=== PATIENT | male | born 1955 | race African-American/Black ===

== ENCOUNTER 2016-06-22 16:18 | Inpatient (IN) | payer MEDICAID ==
[~2016-06-22] VITALS: Ht 193 cm; Wt 102.1 kg
[2016-06-22 16:42] VITALS: BP 172/96
[2016-06-22 16:51] LABS: BASOPHILS % (AUTO) 0.8 % (0.0-2.0); LYMPHOCYTES % (AUTO) 23.4 % (20.0-45.0); MEAN CORPUSCULAR HEMOGLOBIN 28.2 PG (27.0-31.0); MEAN CORPUSCULAR HGB CONC 32.1 G/DL (32.0-36.0); MEAN CORPUSCULAR VOLUME 88 FL (80-99); MEAN PLATELET VOLUME 6.6 FL (6.5-10.1); MONOCYTES % (AUTO) 7.8 % (1.0-10.0); PLATELET COUNT 224 K/UL (150-450); RED BLOOD COUNT 4.64 M/UL (4.70-6.10); RED CELL DISTRIBUTION WIDTH 13.3 % (11.6-14.8); WHITE BLOOD COUNT 10.6 K/UL (4.8-10.8)
[2016-06-22 17:07] LABS: TROPONIN I < 0.30 ng/mL (<=0.30)
[2016-06-22 17:48] LABS: ALANINE AMINOTRANSFERASE 11 U/L (3-41); ALBUMIN/GLOBULIN RATIO 1.2 (1.0-2.7); ANION GAP 14 (5-15); ASPARTATE AMINO TRANSFERASE 14 U/L (5-40); CALCIUM 8.9 mg/dL (8.6-10.2); CARBON DIOXIDE 26 mEQ/L (20-30); CHLORIDE 101 mEQ/L (98-107); CKMB 1.7 ng/mL (< 6.7); GLOMERULAR FILTRATION RATE > 60 mL/min (>60); HEMOLYSIS 24; POTASSIUM 4.1 mEQ/L (3.4-4.9); SODIUM 141 mEQ/L (135-145); TOTAL PROTEIN 6.8 g/dL (6.6-8.7)
[2016-06-22 18:48] VITALS: BP 148/87
--- NOTE | 2016-06-22 18:50 | Emergency Room Report ---
History of Present Illness General Chief Complaint: Chest Pain Source: Patient, EMS Present Illness HPI Patient present with complaints of left upper chest pain Ongoing since last night Patient reports increased pain with movement and touch Denies any shortness of breath denies any back or flank pain Denies any previous cardiac workup Pain is 6/10 He does describe sharp pain also heaviness denies any low back pain or tearing sensation Patient also does report a fall last week Hitting the left upper chest area Allergies: Coded Allergies: No Known Allergies (Unverified , 06/22/16) Patient History Past Medical History: see triage record Pertinent Family History: none Reviewed Nursing Documentation: PMH: Agreed, PSxH: Agreed Nursing Documentation-PMH Past Medical History: No Stated History Review of Systems All Other Systems: negative except mentioned in HPI Physical Exam Vital Signs Date Time Temp Pulse Resp B/P Pulse Ox O2 Delivery O2 Flow Rate FiO2 06/22/16 16:11 98.2 80 16 178/110 98 Room Air Sp02 EP Interpretation: reviewed, normal General Appearance: well appearing, no apparent distress Head: normocephalic, atraumatic Eyes: bilateral eye EOMI, bilateral eye PERRL ENT: hearing grossly normal, normal pharynx, TMs + canals normal, uvula midline Neck: full range of motion, supple, no meningismus, no bony tend Respiratory: lungs clear, normal breath sounds, no rhonchi, no respiratory distress, no retraction, no accessory muscle use Cardiovascular #1: normal peripheral pulses, regular rate, rhythm, no edema, no gallop, no JVD, no murmur Gastrointestinal: normal bowel sounds, non tender, soft, no mass, no organomegaly, non-distended, no guarding, no hernia, no pulsatile mass, no rebound Genitourinary: no CVA tenderness Musculoskeletal: normal inspection Neurologic: oriented x3, responsive, wrapper hand III-XII nml as tested, motor strength/ tone normal, sensory intact Psychiatric: mood/affect normal Skin: normal color, no rash, warm/dry, palpation normal, other - Mild bruising left upper chest just lateral to the area lower area Lymphatic: normal inspection, no adenopathy Medical Decision Making Diagnostic Impression: Primary Impression: ACS (acute coronary syndrome) ER Course Patient is a fairly complex patient with multiple differential to consideration including but not limited to cardiac cardiopulmonary and vascular emergencies Chest x-ray does not show any obvious acute pathology There is some component of reproducible discomfort And mechanism for contusion however the patient's EKG is somewhat abnormal and given the patient's hypertensive presentation patient require further inpatient care Labs Test 06/22/16 16:40 White Blood Count 10.6 K/UL (4.8-10.8) Red Blood Count 4.64 M/UL (4.70-6.10) Hemoglobin 13.1 G/DL (14.2-18.0) Hematocrit 40.7 % (42.0-52.0) Mean Corpuscular Volume 88 FL (80-99) Mean Corpuscular Hemoglobin 28.2 PG (27.0-31.0) Mean Corpuscular Hemoglobin Concent 32.1 G/DL (32.0-36.0) Red Cell Distribution Width 13.3 % (11.6-14.8) Platelet Count 224 K/UL (150-450) Mean Platelet Volume 6.6 FL (6.5-10.1) Neutrophils (%) (Auto) 66.0 % (45.0-75.0) Lymphocytes (%) (Auto) 23.4 % (20.0-45.0) Monocytes (%) (Auto) 7.8 % (1.0-10.0) Eosinophils (%) (Auto) 2.0 % (0.0-3.0) Basophils (%) (Auto) 0.8 % (0.0-2.0) Sodium Level 141 mEQ/L (135-145) Potassium Level 4.1 mEQ/L (3.4-4.9) Chloride Level 101 mEQ/L (98-107) Carbon Dioxide Level 26 mEQ/L (20-30) Anion Gap 14 (5-15) Blood Urea Nitrogen 13 mg/dL (7-23) Creatinine 1.0 mg/dL (0.7-1.2) Estimat Glomerular Filtration Rate > 60 mL/min (>60) Glucose Level 93 mg/dL (74-106) Calcium Level 8.9 mg/dL (8.6-10.2) Total Bilirubin 0.3 mg/dL (0.0-1.2) Aspartate Amino Transf (AST/SGOT) 14 U/L (5-40) Alanine Aminotransferase (ALT/SGPT) 11 U/L (3-41) Alkaline Phosphatase 94 U/L (40-129) Total Creatine Kinase 159 U/L (38-174) Creatine Kinase MB 1.7 ng/mL (< 6.7) Creatine Kinase MB Relative Index 1.0 Troponin I < 0.30 ng/mL (<=0.30) Pro-B-Type Natriuretic Peptide 49 pg/mL (0-125) Total Protein 6.8 g/dL (6.6-8.7) Albumin 3.8 g/dL (3.5-5.2) Globulin 3.0 g/dL Albumin/Globulin Ratio 1.2 (1.0-2.7) EKG Diagnostic Results Rate: normal Rhythm: NSR ST Segments: other - Nonspecific ST and T-wave changes, there is a nonspecific diffuse elevation in leads 23 aVF V4 V5 and V6, with likely early repoll Rhythm Strip Diag. Results EP Interpretation: yes Rate: 88 Rhythm: NSR, no PVC's, no ectopy Chest X-Ray Diagnostic Results EP Interpretation: Yes Findings: no consolidation, no effusion, no pneumothorax Number of Views: 1 Last Vital Signs Date Time Temp Pulse Resp B/P Pulse Ox O2 Delivery O2 Flow Rate FiO2 06/22/16 16:42 80 16 Room Air 06/22/16 16:42 98.3 172/96 98 Status: improved Disposition: ADMITTED INPATIENT Condition: Serious Referrals: LETICIA TOMLINSON,REFERRING (PCP) EMANUEL JEAN D.O. Jun 22, 2016 18:50
[2016-06-22] MEDS ORDERED: NKM (18:56)
[2016-06-22] MEDS ORDERED: Nitroglycerin 2% oint pkt TOPIC ONE (19:00)
[2016-06-22] MEDS ORDERED: Aspirin Baby 81mg ORAL ONE (19:00)
[2016-06-22] MEDS ORDERED: Morphine Sulfate 4mg/ml Inj IVP ONE (19:00)
[2016-06-22] MEDS ORDERED: Nitroglycerin Subl 0.4mg tab (Bottle Of 25) SL PRN (19:15)
[2016-06-22] MEDS ORDERED: DuoNeb 0.5-3(2.5)mg/3ml neb HHN PRN (19:15)
[2016-06-22] MEDS ORDERED: Ketorolac 30mg Inj IV PRN (19:15)
[2016-06-22] MEDS ORDERED: Diltiazem 25mg/5ml IV PRN (19:15)
[2016-06-22] MEDS ORDERED: Miralax 17gm pkt ORAL PRN (19:15)
[2016-06-22] MEDS ORDERED: Morphine Sulfate 2mg/ml Inj IVP PRN (19:15)
[2016-06-22] MEDS ORDERED: Enalaprilat 2.5mg/2ml Inj IV PRN (19:15)
[2016-06-22 20:00] VITALS: BP 152/86
[2016-06-22] MEDS: Heparin 5000 units/ml inj SUBQ SCH (21:01)
[2016-06-22] MEDS ORDERED: Influenza Virus Vaccine 0.5ml IM ONE (21:30)
[2016-06-22 22:05] VITALS: BP 130/83
[2016-06-23 00:07] VITALS: BP 147/76
[2016-06-23 04:00] VITALS: BP 98/58
[2016-06-23 07:28] LABS: BASOPHILS % (AUTO) 0.8 % (0.0-2.0); EOSINOPHILS % (AUTO) 2.2 % (0.0-3.0); LYMPHOCYTES % (AUTO) 35.1 % (20.0-45.0); MEAN CORPUSCULAR HEMOGLOBIN 28.1 PG (27.0-31.0); MEAN CORPUSCULAR HGB CONC 31.5 G/DL (32.0-36.0); MEAN CORPUSCULAR VOLUME 89 FL (80-99); MEAN PLATELET VOLUME 6.6 FL (6.5-10.1); MONOCYTES % (AUTO) 7.7 % (1.0-10.0); NEUTROPHILS % (AUTO) 54.1 % (45.0-75.0); PLATELET COUNT 216 K/UL (150-450); RED BLOOD COUNT 4.62 M/UL (4.70-6.10); RED CELL DISTRIBUTION WIDTH 13.5 % (11.6-14.8); WHITE BLOOD COUNT 11.2 K/UL (4.8-10.8)
[2016-06-23 07:32] LABS: PROTHROMBIN TIME 10.6 SEC (9.30-11.50)
[2016-06-23 07:43] LABS: TROPONIN I < 0.30 ng/mL (<=0.30)
[2016-06-23 07:48] LABS: THYROID STIMULATING HORMONE 1.61 uIU/mL (0.300-4.500)
[2016-06-23 07:49] LABS: CHOLESTEROL/HDL RATIO 4.2 (3.3-4.4); CRP QUANT 0.4 mg/dL (< 0.5)
[2016-06-23 08:04] VITALS: BP 119/78
[2016-06-23] MEDS: Aspirin Baby 81mg ORAL SCH (08:10)
[2016-06-23] MEDS: Heparin 5000 units/ml inj SUBQ SCH ×2 (08:12→20:58)
[2016-06-23] MEDS ORDERED: Influenza Virus Vaccine 0.5ml IM ONE (09:00)
--- NOTE | 2016-06-23 10:19 | Diagnostic Imaging Report ---
Indication: Chest Pain Comparison: None A single view chest radiograph was obtained. Findings: No definite infiltrate or pulmonary vascular congestion identified. The heart is within normal limits in terms of size. The aorta is mildly enlarged consistent with atherosclerotic vascular disease. The bones are osteopenic. Impression: No acute disease
[2016-06-23 11:59] VITALS: BP 129/83
--- NOTE | 2016-06-23 12:53 | History and Physical ---
History of Present Illness General Date patient seen: Jun 23, 2016 Reason for Hospitalization: Chest Pain Present Illness HPI 61 year old male with hx of HTN, presented to ER with complaints of left upper chest pain He does describe sharp pain also heaviness. He is admitted to telemetry to rule out ACS. Allergies: Coded Allergies: No Known Allergies (Unverified , 06/22/16) Medication History Scheduled No Known Medications* (NKM - No Known Medications*), 0 ., (Reported) Patient History Healthcare decision maker Resuscitation status Full Code Advanced Directive on File Past Medical/Surgical History Past Medical/Surgical History: (1) HTN (hypertension) Review of Systems All Other Systems: negative except mentioned in HPI Physical Exam General Appearance: WD/WN, no apparent distress Lines, tubes and drains: peripheral, trach HEENT: normocephalic, atraumatic Neck: non-tender, normal alignment, supple Respiratory/Chest: chest wall non-tender, lungs clear Breasts: no masses Cardiovascular/Chest: normal peripheral pulses, normal rate Abdomen: normal bowel sounds, non tender Genitourinary/Rectal: normal genital exam, normal rectal exam Extremities: normal range of motion, non-tender Skin Exam: normal pigmentation 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 Last 24 Hour Vital Signs Date Time Temp Pulse Resp B/P Pulse Ox O2 Delivery O2 Flow Rate FiO2 06/23/16 11:59 97.9 52 18 129/83 98 Room Air 06/23/16 08:04 97.3 47 18 119/78 97 Room Air 06/23/16 08:00 52 06/23/16 04:00 97.9 57 19 98/58 96 Room Air 06/23/16 04:00 48 06/23/16 00:07 97.3 50 20 147/76 98 Trach Collar 06/23/16 00:00 47 06/22/16 22:05 97.5 56 18 130/83 96 Room Air 06/22/16 20:00 96.8 54 21 152/86 96 Room Air 06/22/16 19:29 98.2 55 17 152/91 99 Room Air 06/22/16 19:25 98.2 06/22/16 18:57 152/91 06/22/16 18:48 98.2 55 17 148/87 99 Room Air 06/22/16 16:42 80 16 Room Air 06/22/16 16:42 98.3 57 12 172/96 98 Room Air 06/22/16 16:11 98.2 80 16 178/110 98 Room Air Intake and Output 06/22/16 06/23/16 19:00 07:00 Intake Total 200 ml Balance 200 ml Intake Oral 200 ml # Voids 1 Laboratory Tests Test 06/22/16 16:40 06/23/16 05:20 White Blood Count 10.6 K/UL (4.8-10.8) 11.2 K/UL (4.8-10.8) H Red Blood Count 4.64 M/UL (4.70-6.10) L 4.62 M/UL (4.70-6.10) L Hemoglobin 13.1 G/DL (14.2-18.0) L 13.0 G/DL (14.2-18.0) L Hematocrit 40.7 % (42.0-52.0) L 41.2 % (42.0-52.0) L Mean Corpuscular Volume 88 FL (80-99) 89 FL (80-99) Mean Corpuscular Hemoglobin 28.2 PG (27.0-31.0) 28.1 PG (27.0-31.0) Mean Corpuscular Hemoglobin Concent 32.1 G/DL (32.0-36.0) 31.5 G/DL (32.0-36.0) L Red Cell Distribution Width 13.3 % (11.6-14.8) 13.5 % (11.6-14.8) Platelet Count 224 K/UL (150-450) 216 K/UL (150-450) Mean Platelet Volume 6.6 FL (6.5-10.1) 6.6 FL (6.5-10.1) Neutrophils (%) (Auto) 66.0 % (45.0-75.0) 54.1 % (45.0-75.0) Lymphocytes (%) (Auto) 23.4 % (20.0-45.0) 35.1 % (20.0-45.0) Monocytes (%) (Auto) 7.8 % (1.0-10.0) 7.7 % (1.0-10.0) Eosinophils (%) (Auto) 2.0 % (0.0-3.0) 2.2 % (0.0-3.0) Basophils (%) (Auto) 0.8 % (0.0-2.0) 0.8 % (0.0-2.0) Sodium Level 141 mEQ/L (135-145) Potassium Level 4.1 mEQ/L (3.4-4.9) Chloride Level 101 mEQ/L (98-107) Carbon Dioxide Level 26 mEQ/L (20-30) Anion Gap 14 (5-15) Blood Urea Nitrogen 13 mg/dL (7-23) Creatinine 1.0 mg/dL (0.7-1.2) Estimat Glomerular Filtration Rate > 60 mL/min (>60) Glucose Level 93 mg/dL (74-106) Calcium Level 8.9 mg/dL (8.6-10.2) Total Bilirubin 0.3 mg/dL (0.0-1.2) Aspartate Amino Transf (AST/SGOT) 14 U/L (5-40) Alanine Aminotransferase (ALT/SGPT) 11 U/L (3-41) Alkaline Phosphatase 94 U/L (40-129) Total Creatine Kinase 159 U/L (38-174) Creatine Kinase MB 1.7 ng/mL (< 6.7) Creatine Kinase MB Relative Index 1.0 Troponin I < 0.30 ng/mL (<=0.30) < 0.30 ng/mL (<=0.30) Pro-B-Type Natriuretic Peptide 49 pg/mL (0-125) Total Protein 6.8 g/dL (6.6-8.7) Albumin 3.8 g/dL (3.5-5.2) Globulin 3.0 g/dL Albumin/Globulin Ratio 1.2 (1.0-2.7) Prothrombin Time 10.6 SEC (9.30-11.50) Prothromb Time International Ratio 1.0 (0.9-1.1) Activated Partial Thromboplast Time 25 SEC (23-33) C-Reactive Protein, Quantitative 0.4 mg/dL (< 0.5) Triglycerides Level 151 mg/dL (< 150) H Cholesterol Level 199 mg/dL (< 200) LDL Cholesterol 122 mg/dL (60-99) H HDL Cholesterol 47 mg/dL (> 60) Cholesterol/HDL Ratio 4.2 (3.3-4.4) Thyroid Stimulating Hormone (TSH) 1.610 uIU/mL (0.300-4.500) Height (Feet): 6 Height (Inches): 4.00 Weight (Pounds): 225 Medications Current Medications Medications (Trade) Dose Ordered Sig/Juanita Route PRN Reason Start Time Stop Time Status Last Admin Dose Admin Acetaminophen (Tylenol) 650 mg Q4H PRN ORAL FEVER 06/22/16 19:15 07/22/16 19:14 Albuterol/ Ipratropium (DuoNeb 0.5-3(2.5)mg/3ml) 3 ml EVERY 4 HOURS PRN HHN Shortness of Breath 06/22/16 19:15 06/27/16 19:14 Aspirin (ASA) 162 mg DAILY ORAL 06/23/16 09:00 07/23/16 08:59 06/23/16 08:10 Diltiazem HCl (Cardizem) 10 mg EVERY HOUR PRN IV heart rate more than 120, 06/22/16 19:15 07/22/16 19:14 Enalaprilat (Vasotec) 2.5 mg EVERY 6 HOURS PRN IV sbp more than 160 06/22/16 19:15 07/22/16 19:14 Heparin Sodium (Porcine) (Heparin 5000 units/ml) 5,000 units EVERY 12 HOURS SUBQ 06/22/16 21:00 07/22/16 20:59 06/23/16 08:12 Ketorolac Tromethamine (Toradol 30mg) 30 mg Q6HR PRN IV moderate pain ( 4-6) 06/22/16 19:15 06/27/16 19:14 Morphine Sulfate (Morphine Sulfate) 2 mg EVERY 4 HOURS PRN IVP severe Pain (Pain Scale 7-10) 06/22/16 19:15 06/29/16 19:14 Nitroglycerin (Ntg) 0.4 mg Q5M PRN SL Prn Chest Pain 06/22/16 19:15 07/22/16 19:14 Ondansetron HCl (Zofran) 4 mg Q6H PRN IVP Nausea & Vomiting 06/22/16 19:15 07/22/16 19:14 Pantoprazole (Protonix) 40 mg DAILY ORAL 06/23/16 09:00 07/23/16 08:59 06/23/16 08:10 Polyethylene Glycol (Miralax) 17 gm DAILYPRN PRN ORAL Constipation 06/22/16 19:15 07/22/16 19:14 Temazepam (Restoril) 15 mg HSPRN PRN ORAL Insomnia 06/22/16 19:15 06/29/16 19:14 Assessment/Plan Problem List: (1) ACS (acute coronary syndrome) ICD Codes: I24.9 - Acute ischemic heart disease, unspecified SNOMED: 422641559 (2) HTN (hypertension) ICD Codes: I10 - Essential (primary) hypertension SNOMED: 30175219 Assessment/Plan serial ekg, troponin echo cardiology evaluation ANA JUAN Jun 23, 2016 12:53
[2016-06-23 16:00] VITALS: BP 142/73
[2016-06-23 20:00] VITALS: BP 134/80
--- NOTE | 2016-06-23 21:11 | Cardiology Progress Note ---
Assessment/Plan Assessment/Plan 2 different types of cp one of [facility] may be ms tobaco use diorder 'hyperlipidemian \ htn hs sinus bradycardia trop and ekg neg i am unable to reproduce cp on palp will have exercise / adenosine Cardiolite stress test [id number] Objective Last 24 Hour Vital Signs Date Time Temp Pulse Resp B/P Pulse Ox O2 Delivery O2 Flow Rate FiO2 06/23/16 20:00 56 06/23/16 20:00 97.8 52 20 134/80 98 Room Air 06/23/16 17:59 97.9 06/23/16 16:00 97.9 50 21 142/73 98 Room Air 06/23/16 12:00 52 06/23/16 11:59 97.9 52 18 129/83 98 Room Air 06/23/16 08:04 97.3 47 18 119/78 97 Room Air 06/23/16 08:00 52 06/23/16 04:00 97.9 57 19 98/58 96 Room Air 06/23/16 04:00 48 06/23/16 00:07 97.3 50 20 147/76 98 Trach Collar 06/23/16 00:00 47 06/22/16 22:05 97.5 56 18 130/83 96 Room Air Intake and Output 06/22/16 06/23/16 19:00 07:00 Intake Total 200 ml Balance 200 ml Intake Oral 200 ml # Voids 1 Laboratory Tests Test 06/23/16 05:20 White Blood Count 11.2 K/UL (4.8-10.8) H Red Blood Count 4.62 M/UL (4.70-6.10) L Hemoglobin 13.0 G/DL (14.2-18.0) L Hematocrit 41.2 % (42.0-52.0) L Mean Corpuscular Volume 89 FL (80-99) Mean Corpuscular Hemoglobin 28.1 PG (27.0-31.0) Mean Corpuscular Hemoglobin Concent 31.5 G/DL (32.0-36.0) L Red Cell Distribution Width 13.5 % (11.6-14.8) Platelet Count 216 K/UL (150-450) Mean Platelet Volume 6.6 FL (6.5-10.1) Neutrophils (%) (Auto) 54.1 % (45.0-75.0) Lymphocytes (%) (Auto) 35.1 % (20.0-45.0) Monocytes (%) (Auto) 7.7 % (1.0-10.0) Eosinophils (%) (Auto) 2.2 % (0.0-3.0) Basophils (%) (Auto) 0.8 % (0.0-2.0) Prothrombin Time 10.6 SEC (9.30-11.50) Prothromb Time International Ratio 1.0 (0.9-1.1) Activated Partial Thromboplast Time 25 SEC (23-33) Troponin I < 0.30 ng/mL (<=0.30) C-Reactive Protein, Quantitative 0.4 mg/dL (< 0.5) Triglycerides Level 151 mg/dL (< 150) H Cholesterol Level 199 mg/dL (< 200) LDL Cholesterol 122 mg/dL (60-99) H HDL Cholesterol 47 mg/dL (> 60) Cholesterol/HDL Ratio 4.2 (3.3-4.4) Thyroid Stimulating Hormone (TSH) 1.610 uIU/mL (0.300-4.500) GRABIEL MINER Jun 23, 2016 21:11
[2016-06-24] VITALS (7 sets, daily range): BP systolic 127–164; BP diastolic 79–98
--- NOTE | 2016-06-24 01:48 | Consultation ---
DATE OF CONSULTATION: 06/23/2016 CARDIOLOGY CONSULTATION: REFERRING PHYSICIAN: Aliyah Arce M.D. REASON FOR REFERRAL: Chest pain. HISTORY OF PRESENT ILLNESS: This is a middle-aged gentleman, who apparently two weeks ago while fixing something fell and hit the left axillary area and was excruciating pain resolved noted come back on Tuesday and since Tuesday he has had pain in that area and more proximal in the chest area and does not feel like pain or pressure but he feels that he has been punched in that area and also has a different kind of sensation in the left side of the chest. He seems to think that the pain gets worse when he takes a deep breath or cough or twists and turns sometimes but the pain has been present it appears possibly all the time although does go away with some kind of pain medications that he does not like take it. He has no PND or orthopnea although he uses five or six pillows for comfort. There is no palpitation and no dizziness or lightheadedness. PAST MEDICAL HISTORY: Positive for high blood pressure and high cholesterol. No heart attack. No cancer. No stroke. No hepatitis or tuberculosis. No asthma or emphysema. No ulcers or kidney problems. No liver problems, thyroid problems, or anemia. He does have some arthritis. No prostate problems, HIV, or any heart problems before. ALLERGIES: He is not allergic to any medications. SOCIAL HISTORY: He smoked one pack a day. Socially, he drinks alcoholic beverages. No drug use. He used to use marijuana, but he stopped that. 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 REVIEW OF SYSTEMS: Gastrointestinal: Negative. : Negative. Pulmonary: Negative. Constitutional: Negative although he feels cold at times. Neurologic: He has some numbness and tingling sensation in his hand when he holds his breath. PHYSICAL EXAMINATION: GENERAL: Shows to be tall gentleman, no apparent distress. VITAL SIGNS: Blood pressure is 119/78 to 142/73 with heart rate 47 to 52 range. NECK: Supple. No jugular venous distention. LUNGS: Clear to auscultation and percussion. CARDIAC: Regular rate and rhythm. No heaves, thrills, or gallops noted. Chest wall, does not appear to be tender to palpation although he indicates he just took some pain medications. ABDOMEN: Soft and nontender. Positive bowel sounds. EXTREMITIES: There is no clubbing, cyanosis, nor is there any edema. NEUROLOGIC: He is awake, alert, responsive, in no apparent distress. LABORATORY VALUES: Troponins are negative. Sodium 141, potassium 4.1, chloride 101, bicarbonate 26, BUN 13, creatinine 1.2, and glucose of 93. Liver function tests are normal. ProBNP is only 49. Total cholesterol 199 with ALT of 122 and HDL 47. TSH of 1.2. Coags, INR is 1.0 and PTT 25. His electrocardiogram shows sinus bradycardia 62 range. Paramedics indicate EKG will also is normal. No ST-T wave abnormality. No significant degree. ASSESSMENT AND PLAN: 1. Atypical chest pain. He seems to have at least two different types of pain. One, musculoskeletally. Other one he had a hard time describing. The musculoskeletal pain does get worse with the position and coughing and deep breathing and the other pain is difficult to describe or explain any relieving exacerbating factors being identified. The patient is a smoker. 2. Hyperlipidemia. 3. Hypertension. I would recommend a perfusion imaging prior to to discharge home mainly because it is too different types of pain. I will follow the patient along with you. Mark Chaidez M.D. DR: Jonatan JOB#: [id number] CC:
[2016-06-24 07:51] LABS: TROPONIN I < 0.30 ng/mL (<=0.30)
[2016-06-24] MEDS: Aspirin Baby 81mg ORAL SCH (08:43)
[2016-06-24] MEDS: Heparin 5000 units/ml inj SUBQ SCH (08:44)
--- NOTE | 2016-06-24 12:54 | Pulmonology Progress Note ---
Assessment/Plan Problems: (1) ACS (acute coronary syndrome) (2) HTN (hypertension) Assessment/Plan stress test dc if negative f/u by cardio Subjective ROS Limited/Unobtainable: No Interval Events: stress test today Constitutional: Reports: no symptoms HEENT: Repors: no symptoms Allergies: Coded Allergies: No Known Allergies (Unverified , 06/22/16) Objective Last 24 Hour Vital Signs Date Time Temp Pulse Resp B/P Pulse Ox O2 Delivery O2 Flow Rate FiO2 06/24/16 11:51 97.9 50 18 127/92 99 Room Air 06/24/16 08:20 97.7 47 18 130/79 98 Room Air 06/24/16 08:00 52 06/24/16 06:30 98.5 48 18 155/90 98 Room Air 06/24/16 05:30 165/70 06/24/16 04:04 98.5 48 21 164/90 99 Room Air 06/24/16 04:00 42 06/24/16 01:00 98.8 50 20 158/80 97 Room Air 06/24/16 00:13 98.8 50 20 163/98 97 Room Air 06/24/16 00:00 53 06/23/16 20:00 56 06/23/16 20:00 97.8 52 20 134/80 98 Room Air 06/23/16 17:59 97.9 06/23/16 16:00 97.9 50 21 142/73 98 Room Air Intake and Output 06/23/16 06/24/16 19:00 07:00 Intake Total 360 ml 260 ml Output Total 480 ml 1800 ml Balance -120 ml -1540 ml Intake Oral 360 ml 260 ml Output Urine Total 480 ml 1800 ml # Voids 1 General Appearance: WD/WN HEENT: normocephalic, atraumatic Respiratory/Chest: chest wall non-tender, lungs clear Cardiovascular: normal peripheral pulses, normal rate Abdomen: normal bowel sounds, no organomegaly Laboratory Tests 06/24/16 06:40: Troponin I < 0.30 Current Medications Medications (Trade) Dose Ordered Sig/Juanita Route PRN Reason Start Time Stop Time Status Last Admin Dose Admin Acetaminophen (Tylenol) 650 mg Q4H PRN ORAL FEVER 06/22/16 19:15 07/22/16 19:14 Albuterol/ Ipratropium (DuoNeb 0.5-3(2.5)mg/3ml) 3 ml EVERY 4 HOURS PRN HHN Shortness of Breath 06/22/16 19:15 06/27/16 19:14 Aspirin (ASA) 162 mg DAILY ORAL 06/23/16 09:00 07/23/16 08:59 06/24/16 08:43 Diltiazem HCl (Cardizem) 10 mg EVERY HOUR PRN IV heart rate more than 120, 06/22/16 19:15 07/22/16 19:14 Enalaprilat (Vasotec) 2.5 mg EVERY 6 HOURS PRN IV sbp more than 160 06/22/16 19:15 07/22/16 19:14 06/24/16 05:30 Heparin Sodium (Porcine) (Heparin 5000 units/ml) 5,000 units EVERY 12 HOURS SUBQ 06/22/16 21:00 07/22/16 20:59 06/24/16 08:44 Ketorolac Tromethamine (Toradol 30mg) 30 mg Q6HR PRN IV moderate pain ( 4-6) 06/22/16 19:15 06/27/16 19:14 06/23/16 17:29 Morphine Sulfate (Morphine Sulfate) 2 mg EVERY 4 HOURS PRN IVP severe Pain (Pain Scale 7-10) 06/22/16 19:15 06/29/16 19:14 Nitroglycerin (Ntg) 0.4 mg Q5M PRN SL Prn Chest Pain 06/22/16 19:15 07/22/16 19:14 Ondansetron HCl (Zofran) 4 mg Q6H PRN IVP Nausea & Vomiting 06/22/16 19:15 07/22/16 19:14 Pantoprazole (Protonix) 40 mg DAILY ORAL 06/23/16 09:00 07/23/16 08:59 06/24/16 08:43 Polyethylene Glycol (Miralax) 17 gm DAILYPRN PRN ORAL Constipation 06/22/16 19:15 07/22/16 19:14 Temazepam (Restoril) 15 mg HSPRN PRN ORAL Insomnia 06/22/16 19:15 06/29/16 19:14 ANA JUAN Jun 24, 2016 12:54
--- NOTE | 2016-06-24 15:15 | Cardiology Report ---
APPROVED REPORT EKG Measurement Heart [id number] Normal sinus rhythm with sinus arrhythmia Possible Left atrial enlargement Left ventricular hypertrophy ST elevation, consider early repolarization, pericarditis, or injury Abnormal ECG
--- NOTE | 2016-06-24 15:25 | Cardiology Report ---
APPROVED REPORT EXAM: Two-dimensional and M-mode echocardiogram with Doppler and color Doppler. INDICATION Left ventricular function M-Mode DIMENSIONS IVSd1.2 (0.7-1.1cm)Left Atrium (MM)2.8 (1.6-4.0cm) LVDd4.2 (3.5-5.6cm)Aortic Root3.0 (2.0-3.7cm) PWd1.3 (0.7-1.1cm)Aortic Cusp Exc.1.7 (1.5-2.0cm) LVDs2.9 (2.5-4.0cm) PWs1.6 cm Normal left ventricular chamber size, systolic function and wall motion. Left ventricular ejection fraction estimated to be 55-60 %. Moderate left ventricular hypertrophy. No evidence of pericardial fat or effusion. Moderate right atrial enlargement by 2D. Mild left atrial enlargement by 2D. Mild focal aortic valve sclerosis with adequate cusp excursion Thickened mitral valve leaflets with normal excursion. Mild mitral annulus and aortic root calcification. Pulmonic valve not well visualized. Normal tricuspid valve structure. IVC dilated at 2.9cm with no physiologic collapse. RA pressure of 20mmHg. A color flow and spectral Doppler study was performed and revealed: No aortic regurgitation. No mitral regurgitation. Mitral inflow velocities indicates possible pseudo normalization pattern implying significant left ventricular diastolic dysfunction. Moderate tricuspid regurgitation. Tricuspid systolic velocities suggests peak right ventricular systolic pressure of 46 mmHg Consistent with moderate pulmonary hypertension.
--- NOTE | 2016-06-24 16:39 | Diagnostic Imaging Report ---
Indications: Chest pain Technique: Single day single isotope protocol utilized. Initially, resting images obtained using IV administration 11.9 millicuries 99M technetium Myoview. Subsequently, patient underwent treadmill stress testing. See cardiology report for details. During treadmill testing, IV administration 31 mCi 99 M technetium Myoview. SPECT and planar images obtained. SPECT images gated to 8 phases of the cardiac cycle were also obtained, and reformatted into cine images for evaluation of ejection fraction. Comparison: None Findings: Per cardiology report, patient experienced no symptoms. Per cardiology report, resting EKG demonstrates sinus bradycardia with early repolarization abnormality. Presence or absence of ST changes is not recorded on the cardiology report. Patient achieved the exercise heart rate 153 beats for minute, in excess of the target heart rate 136 beats for minute. Imaging demonstrates a small post stress perfusion defect in the anteroseptal wall and apex which is actually larger on the resting images. Normal left ventricular chamber size. Calculated post stress ejection fraction 55% Impression: Nonischemic clinical response to pharmacologic stress, per cardiology report Nonischemic electrocardiographic response to pharmacologic stress, per cardiology report Small fixed perfusion defect in the anteroseptal wall near the apex. No imaging findings to suggest ischemia, at level of stress achieved Calculated post stress ejection fraction 55%
--- NOTE | 2016-06-25 14:48 | Discharge Summary ---
Discharge Summary Hospital Course Date of Admission Jun 22, 2016 at 18:30 Date of Discharge Jun 24, 2016 at 20:16 Admitting Diagnosis Acute Coronary Syndrome HPI Ramy Baez is a 61 year old male who was admitted on Jun 22, 2016 at 18: 30 for Acute Coronary Syndrome Hospital Course [id number] Discharge Discharge Disposition Patient was discharged to Home (01) Discharge Diagnoses: Yumiko Avila NP Jun 25, 2016 14:48
--- NOTE | 2016-06-26 01:58 | Discharge Summary 2 SIG ---
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 BRIEF HOSPITAL COURSE: The patient is a 61-year-old male, with history of hypertension, who presented to ED complaining of left upper chest pain, described as heaviness. He was admitted for cardiac evaluation and possible ACS. Dr. Chaidez was consulted. EKG was normal. No ST-T wave abnormality of significant degree. Cardiac troponins were negative. He underwent a nuclear treadmill stress test. Results were nonischemic. The patient was eventually discharged home. FINAL DIAGNOSES: 1. Musculoskeletal chest pain. 2. Tobacco use disorder. 3. Hyperlipidemia. 4. Hypertension. 5. Sinus bradycardia. Aliyah Arce M.D. I have been assigned to dictate discharge summary on this account and I was not involved in the patient's management. Yumiko Avila N.P. DR: MICHAEL JOB#: [id number] CC:
== END 2016-06-24 20:16 | disposition home or self-care (01) | DRG 203 ==
LOC: EDBD 16:18 → EMR 16:53 → EDBEDREQ 17:27 → 2E 18:30 → EDBEDREQ 18:47
DX: R07.89 Other chest pain (principal); I10 Essential (primary) hypertension; F17.200 Nicotine dependence, unspecified, uncomplicated; E78.5 Hyperlipidemia, unspecified; R00.1 Bradycardia, unspecified
CPT/HCPCS: 36415; 71010; 78452; 80053; 80061; 82550; 82553; 83880; 84443; 84484; 85025; 85610; 85730; 86140; 93005; 93017; 93306; Q2036

== ENCOUNTER 2017-07-13 10:36 | Emergency (ER) | payer MEDICAID, OTHER ==
[~2017-07-13] VITALS: Ht 193 cm; Wt 99.8 kg
[~2017-07-13 10:36] MED LIST: NKM
[2017-07-13] MEDS ORDERED: Ketorolac 60mg Inj IM ONE (11:30)
[2017-07-13] MEDS ORDERED: Cyclobenzaprine 10mg Tab ORAL ONE (11:30)
[2017-07-13 11:44] LABS: APPEARANCE,URINE CLEAR; BILIRUBIN, URINE NEGATIVE (NEGATIVE); GLUCOSE, URINE (UA) NEGATIVE (NEGATIVE); KETONES,URINE NEGATIVE (NEGATIVE); LEUKOCYTE ESTERASE ,URINE 1+ (NEGATIVE); NITRITE,URINE NEGATIVE (NEGATIVE); PH,URINE 5 (4.5-8.0); PROTEIN,URINE 2+ (NEGATIVE); UROBILINOGEN,URINE 1 MG/DL (0.0-1.0)
[2017-07-13 11:56] LABS: COLOR,URINE YELLOW
[2017-07-13 12:37] LABS: BASOPHILS % (AUTO) 1.2 % (0.0-2.0); EOSINOPHILS % (AUTO) 2.5 % (0.0-3.0); HEMATOCRIT 44.1 % (42.0-52.0); HEMOGLOBIN 14.2 G/DL (14.2-18.0); LYMPHOCYTES % (AUTO) 25.1 % (20.0-45.0); MEAN CORPUSCULAR VOLUME 89 FL (80-99); MONOCYTES % (AUTO) 9.7 % (1.0-10.0); NEUTROPHILS % (AUTO) 61.5 % (45.0-75.0); PLATELET COUNT 249 K/UL (150-450); RED BLOOD COUNT 4.97 M/UL (4.70-6.10); RED CELL DISTRIBUTION WIDTH 13.4 % (11.6-14.8); WHITE BLOOD COUNT 10.7 K/UL (4.8-10.8)
[2017-07-13 12:53] LABS: ANION GAP 4 mmol/L (5-15); BLOOD UREA NITROGEN 14 mg/dL (7-18); CALCIUM 9.1 MG/DL (8.5-10.1); CARBON DIOXIDE 29 MMOL/L (21-32); CHLORIDE 102 MMOL/L (98-107); SODIUM 134 MMOL/L (136-145)
[2017-07-13 13:01] LABS: ALANINE AMINOTRANSFERASE 19 U/L (12-78); ALBUMIN 3.9 G/DL (3.4-5.0); ALKALINE PHOSPHATASE 106 U/L (46-116); ASPARTATE AMINO TRANSFERASE 9 U/L (15-37); BILIRUBIN,TOTAL 0.3 MG/DL (0.2-1.0); CREATINE KINASE 164 U/L (26-308)
--- NOTE | 2017-07-13 13:52 | Emergency Room Report ---
History of Present Illness General Chief Complaint: Pain Source: Patient Present Illness HPI This patient states he has had body aches all over his body for probably the past year. He describes his pain as achy and all over. 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 He is not on any of his medications that he had been on previously by his primary care physician. He does have a history of hypertension. Have an appointment coming up in the next month at a new clinic. He states that his insurance changed the clinic he can go to. He denies chest pain or shortness of breath. He denies abdominal pain. He denies recent illness. Denies fever chills. He denies headache or neck pain. He has no other complaints. Allergies: Coded Allergies: No Known Allergies (Unverified , 06/22/16) Patient History Past Medical History: see triage record, HTN Social History: Reports: smoking, Denies: alcohol use, drug use Reviewed Nursing Documentation: PMH: Agreed, PSxH: Agreed Nursing Documentation-PMH Past Medical History: No History, Except For Hx Cardiac Problems: Yes Hx Hypertension: Yes Hx Cancer: No Hx Gastrointestinal Problems: No Hx Neurological Problems: No Review of Systems All Other Systems: negative except mentioned in HPI Physical Exam Vital Signs Date Time Temp Pulse Resp B/P (MAP) Pulse Ox O2 Delivery O2 Flow Rate FiO2 07/13/17 10:40 98.3 66 18 158/96 96 Room Air 98.2 Sp02 EP Interpretation: reviewed, normal General Appearance: no apparent distress, alert, GCS 15, non-toxic Head: normocephalic, atraumatic Eyes: bilateral eye normal inspection, bilateral eye PERRL ENT: hearing grossly normal, normal pharynx, no angioedema, normal voice Neck: full range of motion, supple/symm/no masses Respiratory: chest non-tender, lungs clear, normal breath sounds, speaking full sentences Cardiovascular #1: regular rate, rhythm, no edema Gastrointestinal: normal bowel sounds, non tender, soft, non-distended, no guarding, no rebound Rectal: deferred Musculoskeletal: back normal, gait/station normal, normal range of motion, non- tender Neurologic: alert, oriented x3, responsive, motor strength/tone normal, sensory intact, speech normal Psychiatric: judgement/insight normal, memory normal, mood/affect normal, no suicidal/homicidal ideation Skin: normal color, no rash, warm/dry, well hydrated Medical Decision Making Diagnostic Impression: Primary Impression: Neuropathy Additional Impressions: Body aches Arthritis ER Course Patient complains of body aches. I suspect he has arthritis in may have some neuropathy. I did obtain basic labs to include CBC, CMP and CK. These were all unremarkable. There is no evidence of rhabdomyolysis or myositis. Laboratory workup is benign. I'm unsure of the etiology of his symptoms. However, I did educate them that he could see his primary care physician and undergo more thorough testing to include vitamin level testing. However, this should not be obtained in the emergency department. Overall, the patient's evaluation is benign. I instructed the patient to follow-up closely with his primary care physician. I did not identify an emergency medical condition. The patient was given return precautions and follow-up instructions. Laboratory Tests Test 07/13/17 11:34 07/13/17 12:20 Urine Color Yellow Urine Appearance Clear Urine pH 5 (4.5-8.0) Urine Specific [place] 1.025 (1.005-1.035) Urine Protein 2+ (NEGATIVE) H Urine Glucose (UA) Negative (NEGATIVE) Urine Ketones Negative (NEGATIVE) Urine Occult Blood 4+ (NEGATIVE) H Urine Nitrite Negative (NEGATIVE) Urine Bilirubin Negative (NEGATIVE) Urine Urobilinogen 1 MG/DL (0.0-1.0) H Urine Leukocyte Esterase 1+ (NEGATIVE) H Urine RBC 5-10 /HPF (0 - 0) H Urine WBC 2-4 /HPF (0 - 0) Urine Squamous Epithelial Cells Occasional /LPF Urine Bacteria Occasional /HPF (NONE) White Blood Count 10.7 K/UL (4.8-10.8) Red Blood Count 4.97 M/UL (4.70-6.10) Hemoglobin 14.2 G/DL (14.2-18.0) Hematocrit 44.1 % (42.0-52.0) Mean Corpuscular Volume 89 FL (80-99) Mean Corpuscular Hemoglobin 28.6 PG (27.0-31.0) Mean Corpuscular Hemoglobin Concent 32.2 G/DL (32.0-36.0) Red Cell Distribution Width 13.4 % (11.6-14.8) Platelet Count 249 K/UL (150-450) Mean Platelet Volume 6.7 FL (6.5-10.1) Neutrophils (%) (Auto) 61.5 % (45.0-75.0) Lymphocytes (%) (Auto) 25.1 % (20.0-45.0) Monocytes (%) (Auto) 9.7 % (1.0-10.0) Eosinophils (%) (Auto) 2.5 % (0.0-3.0) Basophils (%) (Auto) 1.2 % (0.0-2.0) Sodium Level 134 MMOL/L (136-145) L Potassium Level 4.0 MMOL/L (3.5-5.1) Chloride Level 102 MMOL/L (98-107) Carbon Dioxide Level 29 MMOL/L (21-32) Anion Gap 4 mmol/L (5-15) L Blood Urea Nitrogen 14 mg/dL (7-18) Creatinine 1.0 MG/DL (0.55-1.30) Estimate Glomerular Filtration Rate > 60 mL/min (>60) Glucose Level 124 MG/DL (74-106) H Calcium Level 9.1 MG/DL (8.5-10.1) Total Bilirubin 0.3 MG/DL (0.2-1.0) Aspartate Amino Transferase (AST) 9 U/L (15-37) L Alanine Aminotransferase (ALT) 19 U/L (12-78) Alkaline Phosphatase 106 U/L (46-116) Total Creatine Kinase 164 U/L (26-308) Total Protein 8.0 G/DL (6.4-8.2) Albumin 3.9 G/DL (3.4-5.0) Globulin 4.1 g/dL Albumin/Globulin Ratio 1.0 (1.0-2.7) Last Vital Signs Date Time Temp Pulse Resp B/P (MAP) Pulse Ox O2 Delivery O2 Flow Rate FiO2 07/13/17 10:40 98.3 66 18 158/96 96 Room Air 98.2 Status: improved Disposition: HOME, SELF-CARE Condition: Improved Referrals: [facility],REFERRING (PCP) Patient Instructions: Chronic Pain KESHAWN BOGGS D.O. Jul 13, 2017 13:52
[2017-07-13] MEDS ORDERED: IBUPROFEN600 MG ORAL (13:53)
[2017-07-13 14:16] VITALS: BP 134/75
== END 2017-07-13 14:18 | disposition home or self-care (01) ==
LOC: EMR 11:15
DX: G62.9 Polyneuropathy, unspecified (principal); M79.1 Myalgia; M19.90 Unspecified osteoarthritis, unspecified site; F17.200 Nicotine dependence, unspecified, uncomplicated; I10 Essential (primary) hypertension
CPT/HCPCS: 36415; 80053; 81003; 82550; 85025; 96372; 99283

== ENCOUNTER 2017-08-25 18:29 | Emergency (ER) | payer MEDICAID ==
[~2017-08-25] VITALS: Ht 193 cm; Wt 106.1 kg
[~2017-08-25 18:29] MED LIST changes: +IBUPROFEN600 MG ORAL
[2017-08-25 19:15] LABS: BASOPHILS % (AUTO) 1.2 % (0.0-2.0); EOSINOPHILS % (AUTO) 2.2 % (0.0-3.0); HEMATOCRIT 38.6 % (42.0-52.0); HEMOGLOBIN 12.5 G/DL (14.2-18.0); LYMPHOCYTES % (AUTO) 27.3 % (20.0-45.0); MEAN CORPUSCULAR VOLUME 87 FL (80-99); MONOCYTES % (AUTO) 6.6 % (1.0-10.0); NEUTROPHILS % (AUTO) 62.7 % (45.0-75.0); PLATELET COUNT 204 K/UL (150-450); RED BLOOD COUNT 4.42 M/UL (4.70-6.10); WHITE BLOOD COUNT 13.1 K/UL (4.8-10.8)
[2017-08-25 19:30] LABS: APPEARANCE,URINE CLEAR; BILIRUBIN, URINE NEGATIVE (NEGATIVE); COLOR,URINE PALE YELLOW; GLUCOSE, URINE (UA) NEGATIVE (NEGATIVE); KETONES,URINE NEGATIVE (NEGATIVE); LEUKOCYTE ESTERASE ,URINE NEGATIVE (NEGATIVE); NITRITE,URINE NEGATIVE (NEGATIVE); PH,URINE 7 (4.5-8.0); PROTEIN,URINE NEGATIVE (NEGATIVE); UROBILINOGEN,URINE 1 MG/DL (0.0-1.0)
[2017-08-25 19:36] LABS: ANION GAP 7 mmol/L (5-15); BLOOD UREA NITROGEN 20 mg/dL (7-18); CALCIUM 9.3 MG/DL (8.5-10.1); CARBON DIOXIDE 29 MMOL/L (21-32); CHLORIDE 106 MMOL/L (98-107); POTASSIUM 3.7 MMOL/L (3.5-5.1); SODIUM 142 MMOL/L (136-145)
[2017-08-25 19:44] VITALS: BP 167/91
[2017-08-25 19:49] LABS: ALANINE AMINOTRANSFERASE 22 U/L (12-78); ALBUMIN 3.6 G/DL (3.4-5.0); ALBUMIN/GLOBULIN RATIO 0.9 (1.0-2.7); ALKALINE PHOSPHATASE 89 U/L (46-116); ASPARTATE AMINO TRANSFERASE 15 U/L (15-37); BILIRUBIN,TOTAL 0.3 MG/DL (0.2-1.0); CKMB 2.8 NG/ML (0.0-3.6); CREATINE KINASE 294 U/L (26-308)
--- NOTE | 2017-08-25 20:47 | Emergency Room Report ---
History of Present Illness General Chief Complaint: Chest Pain Source: Patient Present Illness HPI Patient states that today he had a late lunch. He states that he developed a vibration sensation in his left chest. He states that he wasn't feeling not well and he took his blood pressure with his friends blood pressure cuff. He states that his blood pressure was elevated. He states he took it several more times and he continued to be elevated. He is not on any blood pressure medications. He did recently see his primary care physician and he had borderline high blood pressure. He denies chest pain at this time. He denies recent illness. He denies cough or congestion. He denies tingling or numbness. He denies abdominal pain. He has no other complaints. Allergies: Coded Allergies: No Known Allergies (Unverified , 06/22/16) Patient History Past Medical History: see triage record, HTN Social History: Reports: smoking, drug use - THC Reviewed Nursing Documentation: PMH: Agreed; PSxH: Agreed Nursing Documentation-PMH Past Medical History: No History, Except For Hx Cardiac Problems: Yes Hx Hypertension: Yes Hx Cancer: No Hx Gastrointestinal Problems: No Hx Neurological Problems: No Review of Systems All Other Systems: negative except mentioned in HPI Physical Exam Vital Signs Date Time Temp Pulse Resp B/P (MAP) Pulse Ox O2 Delivery O2 Flow Rate FiO2 08/25/17 18:29 98.0 58 17 159/93 100 Room Air 98.1 Sp02 EP Interpretation: reviewed, normal General Appearance: no apparent distress, alert, GCS 15, non-toxic Head: normocephalic, atraumatic Eyes: bilateral eye normal inspection, bilateral eye PERRL ENT: hearing grossly normal, normal pharynx, no angioedema, normal voice Neck: full range of motion, supple/symm/no masses Respiratory: chest non-tender, lungs clear, normal breath sounds, speaking full sentences Cardiovascular #1: regular rate, rhythm, no edema Gastrointestinal: normal bowel sounds, non tender, soft, non-distended, no guarding, no rebound Rectal: deferred Musculoskeletal: back normal, gait/station normal, normal range of motion, non- tender Neurologic: alert, oriented x3, responsive, motor strength/tone normal, sensory intact, speech normal Psychiatric: judgement/insight normal, memory normal, mood/affect normal, no suicidal/homicidal ideation Skin: normal color, no rash, warm/dry, well hydrated Medical Decision Making Diagnostic Impression: Primary Impression: HTN (hypertension) ER Course This patient has nonspecific complaints. Given the length of symptoms, this workup is very reassuring with negative cardiac enzymes, unchanged EKG, and normal chest x-ray. The patient underwent cardiac stress test and recent evaluation by a audio/video technician all of which was unremarkable. The patient is low risk and his symptoms are atypical for acute coronary syndrome. I have very low suspicion for PE, aortic dissection or pneumothorax based on history/ physical, laboratory and radiologic workup. I will go ahead and start the patient on low-dose lisinopril because he was persistently hypertensive here in the emergency department. The patient was given close return precautions and followup instructions. Laboratory Tests Test 08/25/17 18:35 White Blood Count 13.1 K/UL (4.8-10.8) H Red Blood Count 4.42 M/UL (4.70-6.10) L Hemoglobin 12.5 G/DL (14.2-18.0) L Hematocrit 38.6 % (42.0-52.0) L Mean Corpuscular Volume 87 FL (80-99) Mean Corpuscular Hemoglobin 28.3 PG (27.0-31.0) Mean Corpuscular Hemoglobin Concent 32.4 G/DL (32.0-36.0) Red Cell Distribution Width 13.0 % (11.6-14.8) Platelet Count 204 K/UL (150-450) Mean Platelet Volume 7.0 FL (6.5-10.1) Neutrophils (%) (Auto) 62.7 % (45.0-75.0) Lymphocytes (%) (Auto) 27.3 % (20.0-45.0) Monocytes (%) (Auto) 6.6 % (1.0-10.0) Eosinophils (%) (Auto) 2.2 % (0.0-3.0) Basophils (%) (Auto) 1.2 % (0.0-2.0) Prothrombin Time 10.3 SEC (9.30-11.50) Prothrombin Time INR 1.0 (0.9-1.1) PTT 24 SEC (23-33) Urine Color Pale yellow Urine Appearance Clear Urine pH 7 (4.5-8.0) Urine Specific [place] 1.010 (1.005-1.035) Urine Protein Negative (NEGATIVE) Urine Glucose (UA) Negative (NEGATIVE) Urine Ketones Negative (NEGATIVE) Urine Occult Blood 3+ (NEGATIVE) H Urine Nitrite Negative (NEGATIVE) Urine Bilirubin Negative (NEGATIVE) Urine Urobilinogen 1 MG/DL (0.0-1.0) H Urine Leukocyte Esterase Negative (NEGATIVE) Urine RBC 0-2 /HPF (0 - 0) H Urine WBC 2-4 /HPF (0 - 0) Urine Squamous Epithelial Cells None /LPF (NONE/OCC) Urine Bacteria Few /HPF (NONE) Urine Yeast Few /HPF (NONE) H Sodium Level 142 MMOL/L (136-145) Potassium Level 3.7 MMOL/L (3.5-5.1) Chloride Level 106 MMOL/L (98-107) Carbon Dioxide Level 29 MMOL/L (21-32) Anion Gap 7 mmol/L (5-15) Blood Urea Nitrogen 20 mg/dL (7-18) H Creatinine 1.0 MG/DL (0.55-1.30) Estimate Glomerular Filtration Rate > 60 mL/min (>60) Glucose Level 112 MG/DL (74-106) H Calcium Level 9.3 MG/DL (8.5-10.1) Total Bilirubin 0.3 MG/DL (0.2-1.0) Aspartate Amino Transferase (AST) 15 U/L (15-37) Alanine Aminotransferase (ALT) 22 U/L (12-78) Alkaline Phosphatase 89 U/L (46-116) Total Creatine Kinase 294 U/L (26-308) Creatine Kinase MB 2.8 NG/ML (0.0-3.6) Creatine Kinase MB Relative Index 0.9 Troponin I 0.000 ng/mL (0.000-0.056) Pro-B-Type Natriuretic Peptide 67 pg/mL (0-125) Total Protein 7.6 G/DL (6.4-8.2) Albumin 3.6 G/DL (3.4-5.0) Globulin 4.0 g/dL Albumin/Globulin Ratio 0.9 (1.0-2.7) L Urine Opiates Screen Negative (NEGATIVE) Urine Barbiturates Screen Negative (NEGATIVE) Phencyclidine (PCP) Screen Negative (NEGATIVE) Urine Amphetamines Screen Negative (NEGATIVE) Urine Benzodiazepines Screen Negative (NEGATIVE) Urine Cocaine Screen Negative (NEGATIVE) Urine Marijuana (THC) Screen Positive (NEGATIVE) H EKG Diagnostic Results Rate: bradycardiac Rhythm: other - S.jaycob ST Segments: no acute changes - Unchanged from comparison 2017 Rhythm Strip Diag. Results EP Interpretation: yes Rate: 50's Rhythm: no PVC's, no ectopy, other - S.[email or web address] Chest X-Ray Diagnostic Results Chest X-Ray Diagnostic Results : Chest X-Ray Ordered: Yes # of Views/Limited/Complete: 1 View Indication: Other EP Interpretation: Yes Interpretation: no consolidation, no effusion, no pneumothorax, no acute cardiopulmonary disease Impression: No acute disease Electronically Signed by: Christian Last Vital Signs Date Time Temp Pulse Resp B/P (MAP) Pulse Ox O2 Delivery O2 Flow Rate FiO2 08/25/17 19:44 98.1 87 16 167/91 100 Room Air 98.1 Status: improved Disposition: HOME, SELF-CARE Condition: Improved Referrals: [facility],REFERR (PCP) KESHAWN BOGGS D.O. Aug 25, 2017 20:47
[2017-08-25] MEDS ORDERED: Lisinopril 10mg tab ORAL ONE (21:00)
[2017-08-25 21:15] VITALS: BP 152/102
[2017-08-25] MEDS ORDERED: LISINOPRIL10 MG ORAL (21:15)
[2017-08-25 21:37] VITALS: BP 131/99
[2017-08-25 21:50] VITALS: BP 131/99
--- NOTE | 2017-08-26 09:09 | Diagnostic Imaging Report ---
Indication: Chest pain Technique: One view of the chest Comparison: June 22, 2016 Findings: Lungs and pleural spaces are clear. Heart size is normal. There is mild thoracic scoliotic deformity. Aorta is tortuous. There is no significant interim change Impression: No acute process This agrees with the preliminary interpretation provided by the emergency room physician
--- NOTE | 2017-08-28 17:50 | Cardiology Report ---
APPROVED REPORT EKG Measurement Heart [id number] Sinus bradycardia Possible Left atrial enlargement Left ventricular hypertrophy Early repolarization Abnormal ECG
== END 2017-08-25 21:55 | disposition home or self-care (01) ==
LOC: EDBD 18:29 → EMR 19:01
DX: I10 Essential (primary) hypertension (principal)
CPT/HCPCS: 36415; 71045; 80053; 80307; 81003; 82550; 82553; 83880; 84484; 85025; 85610; 85730; 87086; 93005; 99283